=== PATIENT | male | born 1990 | race Caucasian/White ===

== ENCOUNTER 2017-01-22 02:35 | Emergency (ER) | payer OTHER ==
[~2017-01-22] VITALS: Ht 180.3 cm; Wt 65.8 kg
[2017-01-22 02:49] VITALS: BP 138/90
[2017-01-22] MEDS ORDERED: ONDANSETRON ODT 4 MG TAB.RAPDIS. PO ONE (04:00)
[2017-01-22] MEDS ORDERED: MORPHINE SULFATE 10 MG/ML VIAL. IM ONE (04:00)
[2017-01-22] MEDS ORDERED: NEOMY/BACITR/POLYMYXIN OINT PACKET. TP ONE (04:00)
[2017-01-22] MEDS ORDERED: HYDR-971 PO (04:10)
--- NOTE | 2017-01-22 04:11 | PHYS DOC ---
Past Medical History Past Medical History: Anxiety Additional Past Medical Histor: ADHD Past Surgical History: No Surgical History Alcohol Use: None Drug Use: None Adult General Chief Complaint Chief Complaint: UPPER EXTREMITY PAIN HPI HPI Patient is a 26 year old male who presents with complaint of left elbow injury. The patient states that he was skateboarding and lost his balance, falling approximately 5 feet onto a hard surface. Patient states that he hit his chin and his left elbow on the ground. Patient suffered a deep abrasion to the chin and states that he chipped his front teeth as a result of the fall. Patient states however his primary complaint is his left elbow which she has been unable to straighten out since the injury. Patient states that he is having significant pain to the elbow and rates it currently as 7 out of 10. Patient states that the pain worsens when he tries to extend his elbow and when he tries to supinate and pronate his forearm. Patient notes that he has abrasions over his left elbow from the fall. Patient denied any loss of consciousness. Patient has been ambulatory since the accident without difficulty. Patient's tetanus is up-to-date. Patient has not taken any medications to help with symptoms at this time. Review of Systems Review of Systems Constitutional: Denies fever or chills [] Eyes: Denies change in visual acuity, redness, or eye pain [] HENT: Dental injury, Denies nasal congestion or sore throat [] Respiratory: Denies cough or shortness of breath [] Cardiovascular: Denies chest pain or edema [] GI: Denies abdominal pain, nausea, vomiting, bloody stools or diarrhea [] : Denies dysuria or hematuria [] Musculoskeletal: Left elbow injury [] Integument: Abrasions to chin, left elbow, and wrist [] Neurologic: Denies headache, focal weakness or sensory changes [] Current Medications Current Medications Current Medications Medications (Trade) Dose Ordered Sig/Rodolfo Start Time Stop Time Status Last Admin Dose Admin Morphine Sulfate 5 mg 1X ONCE 01/22/17 04:00 01/22/17 04:01 DC 01/22/17 03:49 5 MG Neomycin/ Polymyxin/ Bacitracin (Triple Antibiotic Ointment) 1 pkt 1X ONCE 01/22/17 04:00 01/22/17 04:01 DC 01/22/17 03:47 1 PKT Ondansetron HCl (Zofran Odt) 4 mg 1X ONCE 01/22/17 04:00 01/22/17 04:01 DC 01/22/17 03:48 4 MG Allergies Allergies Allergies Coded Allergies Type Severity Reaction Last Updated Verified No Known Drug Allergies 01/22/17 No Physical Exam Physical Exam Constitutional: Alert, afebrile, appears in mild to moderate discomfort. [] HENT: Normocephalic, atraumatic, bilateral external ears normal, 1 cm deep abrasion to left side of chin, oropharynx moist, teeth #8 and #9 with distal chipping, no exposed dentin, no oral exudates, nose normal. [] Eyes: PERRLA, EOMI, conjunctiva normal, no discharge. [] Neck: Normal range of motion, no tenderness, supple, no stridor. [] Cardiovascular:Heart rate regular rhythm, no murmur [] Lungs & Thorax: Bilateral breath sounds clear to auscultation [] Abdomen: Bowel sounds normal, soft, no tenderness, no masses, no pulsatile masses. [] Skin: Warm, dry, no erythema, no rash. [] Back: No tenderness, no CVA tenderness. [] Extremities: Left elbow held in flexed position with overlying abrasions, lateral and volar tenderness to palpation, decreased range of motion including extension and pronation secondary to pain, neurovascularly intact distal to injury. [] Neurologic: Alert and oriented X 3, normal motor function, normal sensory function, no focal deficits noted. [] Current Patient Data Vital Signs Vital Signs Date Time Temp Pulse Resp B/P Pulse Ox O2 Delivery O2 Flow Rate FiO2 01/22/17 03:49 16 Room Air 01/22/17 02:49 98.5 104 98 98.5 01/22/17 02:48 138/90 EKG EKG Not performed [] Radiology/Procedures Radiology/Procedures 3 view left elbow x-ray interpreted by me: Nondisplaced radial head fracture, posterior fat pad and anterior sail sign present, normal alignment [] Course & Med Decision Making Course & Med Decision Making Pertinent Labs and Imaging studies reviewed. (See chart for details) The patient has radiographic evidence of a radial head fracture. The patient's left upper extremity was placed in a posterior splint by the emergency department operations technician. My evaluation post splint application showed normal capillary refill and normal sensation in all 5 digits of the left hand. Patient was prescribed Vicoprofen for outpatient treatment of pain and recommended outpatient follow-up with Dr. Betancourt of orthopedic surgery in one week. Recommended follow-up with the dentist in the next 2-3 days for evaluation of his dental injury. Patient's abrasions were dressed with and about ointment and nonadherent dressings. Advised return emergency department for any worsening symptoms. Patient voiced understanding and in agreement with treatment plan. Dragon Disclaimer Dragon Disclaimer This electronic medical record was generated, in whole or in part, using a voice recognition dictation system. Departure Departure Impression: Primary Impression: Left radial head fracture Additional Impressions: Chin abrasion, non-infected Abrasion of left elbow Dental injury Disposition: HOME, SELF-CARE Condition: IMPROVED Referrals: UNKNOWN PCP NAME (PCP) CHARLOTTE BETANCOURT MD Patient Instructions: Abrasions, Dental Injury, Radial Head Fracture Additional Instructions: Follow-up with Dr. Betancourt of orthopedic surgery in one week for reevaluation of your elbow. You will need follow-up with the dentist in the next 2 days for evaluation of your dental injury. Return to the emergency department for any worsening symptoms. Scripts Hydrocodone/Ibuprofen (Hydrocodone-Ibuprofen 7.5-200 )1 Each Tablet1 Tab PO Q6HRS PRN PAIN #20 TAB Ref 0 Prov:RUSS VARGHESE MD 01/22/17 Problem Qualifiers Primary Impression: Left radial head fracture Encounter type: initial encounter Fracture type: closed Fracture alignment : nondisplaced Qualified Code: S52.125A - Nondisplaced fracture of head of left radius, initial encounter for closed fracture Additional Impressions: Abrasion of left elbow Encounter type: initial encounter Qualified Code: S50.312A - Abrasion of left elbow, initial encounter Dental injury Encounter type: initial encounter Qualified Code: S09.93XA - Unspecified injury of face, initial encounter RUSS VARGHESE MD Jan 22, 2017 04:10
[2017-01-22] MEDS ORDERED: HYDR-79 PO (04:18)
--- NOTE | 2017-01-22 09:03 | RAD ---
ELBOW LEFT 3V Clinical Indication: left elbow injury Comparison: None. Technique: Frontal, oblique and lateral views of the left elbow are obtained. Findings: There is an acute, traumatic fracture involving the radial head with linear opacities seen along the articular surface. Minimal cortical offset is seen on the lateral view. Radiocapitellar alignment is maintained. A posterior fat pad is present, consistent with joint effusion secondary to fracture. Surrounding soft tissues demonstrate no acute finding. IMPRESSION: Acute radial head fracture with joint effusion.
== END 2017-01-22 04:23 | disposition home or self-care (01) ==
LOC: ER 02:35
DX: S52.122A Displaced fracture of head of left radius, initial encounter for closed fracture (principal); S00.81XA Abrasion of other part of head, initial encounter; S50.312A Abrasion of left elbow, initial encounter; S09.93XA Unspecified injury of face, initial encounter; F41.9 Anxiety disorder, unspecified; F90.9 Attention-deficit hyperactivity disorder, unspecified type; W17.89XA Other fall from one level to another, initial encounter; Y93.51 Activity, roller skating (inline) and skateboarding; Y92.89 Other specified places as the place of occurrence of the external cause; Y99.8 Other external cause status
CPT/HCPCS: 73080; 96372; 99284; J2270; Q0162

== ENCOUNTER → 2017-06-14 | Outpatient (CLI) | payer OTHER ==
[~2017-06-14] MED LIST: HYDR-79 PO; HYDR-971 PO; IOHEXOL 240 MG/ML 50ML VIAL. ONE; IOHEXOL 240 MG/ML 50ML VIAL. PO ONE; IOHEXOL 300 MG/ML 75 ML VIAL IV ONE; IOHEXOL 300 MG/ML 75 ML VIAL ONE
--- NOTE | 2017-06-14 15:15 | RAD ---
CT of the abdomen and pelvis with IV and oral contrast 06/14/2017 Indication: Abdominal pain. Weight loss. Rectal bleeding. Comparison study: None Discussion: Multidetector CT imaging of the abdomen and pelvis was obtained both before and after the administration of IV and oral contrast. Visualized lung bases are unremarkable. The liver, gallbladder, adrenal glands, spleen, pancreas are unremarkable. There is a 1.4 cm hypodensity in the inferior pole the left kidney most likely a small cyst. The attenuation characteristics however slightly greater than expected for a simple cyst. This may represent a small component of hemorrhage or proteinaceous material. Ultrasound recommended amended for further characterization. Right kidney is unremarkable. No evidence of bowel obstruction is identified. Small bowel is partially opacified with oral contrast. Lack of oral contrast within the distal small bowel and large bowel limits evaluation of these structures. No gross abnormalities are detected. No pneumoperitoneum or free peritoneal fluid is identified. Bladder is grossly unremarkable in appearance, but is predominantly decompressed. No acute osseous abnormalities are identified. Impression: 1.No evidence of acute intra-abdominal abnormality is identified. 2. 1.4 cm hypodense lesion, inferior pole left kidney. This is most likely a cyst with a small component of hemorrhage or proteinaceous material. Recommend ultrasound for confirmation/further characterization. PQRS Compliance Statement: One or more of the following individualized dose reduction techniques were utilized for this examination: 1. Automated exposure control 2. Adjustment of the mA and/or kV according to patient size 3. Use of iterative reconstruction technique
== END | disposition home or self-care (01) ==
LOC: CT 08:15
PROVIDERS: ATTEND Internal Medicine Gastroenterology
DX: K62.5 Hemorrhage of anus and rectum (principal); R63.4 Abnormal weight loss
CPT/HCPCS: 74177; Q9966; Q9967

== ENCOUNTER → 2018-03-29 | Day surgery (SDC) | payer OTHER ==
[~2018-03-29] MED LIST changes: +DEXAMETHASONE SOD PHOS 20 MG/5 ML VIAL.; +FAMOTIDINE 20 MG/2 ML VIAL; +GLUCAGON,HUMAN RECOMBINANT 1 MG/ML VIAL.; +GLYCOPYRROLATE 1 MG/5 ML VIAL.; -HYDR-79 PO; -HYDR-971 PO; -IOHEXOL 240 MG/ML 50ML VIAL. ONE; -IOHEXOL 240 MG/ML 50ML VIAL. PO ONE; -IOHEXOL 300 MG/ML 75 ML VIAL IV ONE; -IOHEXOL 300 MG/ML 75 ML VIAL ONE; +LIDOCAINE 1% PF 2 ML VIAL. ID; +LIDOCAINE 2% PF Vial for OR 5 ML VIAL.; +METOCLOPRAMIDE HCL 10 MG/2 ML VIAL.; +MIDAZOLAM HCL/PF 2 MG/2 ML VIAL.; +MORPHINE SULFATE 2 MG/ML DISP.SYRIN. IV; +NEOSTIGMINE METHYLSULFATE 5 MG/5 ML SYRINGE.; +ONDANSETRON PF 4 MG/2 ML VIAL.; +ONDANSETRON PF 4 MG/2 ML VIAL. IV; +PROPOFOL 20 ML IV; +ROCURONIUM 50 MG/5 ML VIAL.; +SEVOFLURANE 31 TO 60 MINUTES. IH; +SUCCINYLCHOLINE 200 MG/10 ML VIAL.; +SURGICEL HEMOSTAT 4X8 EACH.; +THROMBIN TOPICAL 5,000 UNIT VIAL.; +ceFAZolin 2GM PREMIX 2 GM/50 ML BAG IV; +fentaNYL PF VIAL 100 MCG/2 ML VIAL; +fentaNYL PF VIAL 100 MCG/2 ML VIAL IV; +oxyCODONE IR 5 MG TABLET
[2018-03-29 07:18] LABS: ADD MAN DIFF? NO
[2018-03-29] MEDS: IV RINGERS,LACTATED 1000ML 1,000 ML IV (07:25)
[2018-03-29 07:40] LABS: ANION GAP 4 (6-14); BLOOD UREA NITROGEN 14 mg/dL (8-26); CALCIUM 9.3 mg/dL (8.5-10.1); CARBON DIOXIDE 29 mmol/L (21-32); CHLORIDE 104 mmol/L (98-107); CREATININE 0.9 mg/dL (0.7-1.3); GFR 102.8; GLUCOSE 98 mg/dL (70-99); POTASSIUM 3.8 mmol/L (3.5-5.1); SODIUM 137 mmol/L (136-145)
[2018-03-29 07:46] LABS: ALBUMIN 4.5 g/dL (3.4-5.0)
[2018-03-29 07:55] LABS: BASO # 0.1 x10^3/uL (0.0-0.2); BASO % 1 % (0-3); EOS # 0.2 x10^3/uL (0.0-0.7); EOS % 2 % (0-3); HEMATOCRIT 42.1 % (39.0-53.0); HEMOGLOBIN 14.5 g/dL (13.0-17.5); LYMPH # 1.6 x10^3/uL (1.0-4.8); LYMPH % 20 % (24-48); MEAN CORPUSCULAR HEMOGLOBIN 31 pg (25-35); MEAN CORPUSCULAR HGB CONC 35 g/dL (31-37); MEAN CORPUSCULAR VOLUME 90 fL (79-100); MONO # 0.6 x10^3/uL (0.0-1.1); MONO % 7 % (0-9); NEUT # 5.6 x10^3uL (1.8-7.7); NEUT % 69 % (31-73); PLATELET COUNT 256 x10^3/uL (140-400); RED BLOOD COUNT 4.68 x10^6/uL (4.30-5.70); RED CELL DISTRIBUTION WIDTH 13.6 % (11.5-14.5); WHITE BLOOD COUNT 8.1 x10^3/uL (4.0-11.0)
[2018-03-29] MEDS: BUPIVACAINE-EPI 0.25%-1:200000 50 ML VIAL. (08:21)
[2018-03-29] MEDS: IOHEXOL 300 MG/ML 100ML VIAL. (08:22)
[2018-03-29] MEDS: fentaNYL PF VIAL 100 MCG/2 ML VIAL IV ×4 (09:01→09:33)
[2018-03-29] MEDS: PROCHLORPERAZINE 10 MG/2 ML VIAL. IV (09:52)
[2018-03-29] MEDS: oxyCODONE IR 5 MG TABLET PO (10:12)
== END | disposition home or self-care (01) ==
LOC: SURG 06:33
DX: K81.1 Chronic cholecystitis (principal); Z79.899 Other long term (current) drug therapy; F90.2 Attention-deficit hyperactivity disorder, combined type; F17.210 Nicotine dependence, cigarettes, uncomplicated; Z88.6 Allergy status to analgesic agent; Z86.010 Personal history of colon polyps; F41.9 Anxiety disorder, unspecified; Z72.89 Other problems related to lifestyle
CPT/HCPCS: 36415; 74300; 80048; 82040; 82247; 85025; 88304; A7015; J0330; J0690; J0780; J1100; J1610; J2001; J2250; J2270; J2405; J2704; J2710; J2765; J3010; J3490; J7030; Q9967; S0028

== ENCOUNTER 2019-05-06 22:04 | Emergency (ER) | payer BC, OTHER ==
[~2019-05-06] VITALS: Ht 177.8 cm; Wt 63.5 kg
[~2019-05-06 22:04] MED LIST changes: +ALPR2TAB5 PO; -DEXAMETHASONE SOD PHOS 20 MG/5 ML VIAL.; +DEXT30TA2 PO; +DOCU50CA9 PO; -FAMOTIDINE 20 MG/2 ML VIAL; -GLUCAGON,HUMAN RECOMBINANT 1 MG/ML VIAL.; -GLYCOPYRROLATE 1 MG/5 ML VIAL.; +HYDR-3164 PO; +HYDROCODONE-IB1 EAC3 PO; -LIDOCAINE 1% PF 2 ML VIAL. ID; -LIDOCAINE 2% PF Vial for OR 5 ML VIAL.; -METOCLOPRAMIDE HCL 10 MG/2 ML VIAL.; -MIDAZOLAM HCL/PF 2 MG/2 ML VIAL.; -MORPHINE SULFATE 2 MG/ML DISP.SYRIN. IV; -NEOSTIGMINE METHYLSULFATE 5 MG/5 ML SYRINGE.; -ONDANSETRON PF 4 MG/2 ML VIAL.; -ONDANSETRON PF 4 MG/2 ML VIAL. IV; +OXYC5TAB4 PO; -PROPOFOL 20 ML IV; -ROCURONIUM 50 MG/5 ML VIAL.; -SEVOFLURANE 31 TO 60 MINUTES. IH; -SUCCINYLCHOLINE 200 MG/10 ML VIAL.; -SURGICEL HEMOSTAT 4X8 EACH.; -THROMBIN TOPICAL 5,000 UNIT VIAL.; -ceFAZolin 2GM PREMIX 2 GM/50 ML BAG IV; -fentaNYL PF VIAL 100 MCG/2 ML VIAL; -fentaNYL PF VIAL 100 MCG/2 ML VIAL IV; -oxyCODONE IR 5 MG TABLET
[2019-05-06] MEDS ORDERED: BUPIVACAINE MPF 0.5% 30 ML VIAL. INJ ONE (22:15)
[2019-05-06] MEDS ORDERED: DIPHTH,PERTUSS(ACELL),TET TOX 0.5 ML DISP.SYRIN. VAX IM ONE (22:45)
--- NOTE | 2019-05-06 23:15 | PHYS DOC ---
Past Medical History Past Medical History: Anxiety Additional Past Medical Histor: ADHD (ALICE SO APRN) Past Surgical History: No Surgical History (ALICE SO APRN) Alcohol Use: None Drug Use: None (ALICE SO APRN) Adult General Chief Complaint Chief Complaint: HAND PROBLEM HPI HPI Patient is a 28 year old male with history of anxiety who presents to the ED today complaining over contusion to the left index finger. Patient is right- handed, he states a conveyor weighing approximately 200-300 pounds fell on his left index finger. He states he was in his work shop when this happened. (ALICE SO APRN) Review of Systems Review of Systems Constitutional: Denies fever or chills [] Musculoskeletal: Reports left index finger pain Integument: Denies rash or skin lesions [] Neurologic: Denies headache, focal weakness or sensory changes [] All other systems were reviewed and found to be within normal limits, except as documented in this note. (ALICE SO APRN) Current Medications Current Medications Current Medications Medications (Trade) Dose Ordered Sig/Rodolfo Start Time Stop Time Status Last Admin Dose Admin Bupivacaine HCl (Sensorcaine Mpf 0.5%) 30 ml 1X ONCE 05/06/19 22:15 05/06/19 22:16 DC Diphtheria/ Tetanus/Acell Pertussis (Boostrix) 0.5 ml ONCE ONCE 05/06/19 22:45 05/06/19 22:46 DC (JAYA OMER DO) Allergies Allergies Allergies Coded Allergies Type Severity Reaction Last Updated Verified acetaminophen Allergy Unknown 03/29/18 Yes (JAYA OMER DO) Physical Exam Physical Exam Constitutional: Well developed, well nourished, no acute distress, non-toxic appearance. [] Skin: Warm, dry, no erythema, no rash. [] Back: No tenderness, no CVA tenderness. [] Extremities: Left index and no obvious deformity. There is a subungual hematoma noted on the left index finger approximately 10% of the nail. There is small amount of bleeding noted along the lateral as well as steeple of the nailbed. Full range of motion to the left index finger. Patient able to flex and extend the left index finger at the MIP, PIP and DIP joints. Tenderness on palpation of the left index fingertip. Adequate radial sensation to the left index finger, cap refill less than 2 seconds the left index finger. Neurologic: Alert and oriented X 3, normal motor function, normal sensory function, no focal deficits noted. [] Psychologic: Affect normal, judgement normal, mood normal. [] (ALICE SO APRN) Current Patient Data Vital Signs Vital Signs Date Time Temp Pulse Resp B/P (MAP) Pulse Ox O2 Delivery O2 Flow Rate FiO2 05/06/19 23:16 102 18 120/70 (87) 100 Room Air 05/06/19 22:12 97.6 97.6 (JAYA OMER DO) EKG EKG [] (ALICE SO APRN) Radiology/Procedures Radiology/Procedures [] (ALICE SO APRN) Radiology/Procedures PROCEDURE: FINGER(S) LEFT EXAM: PA view left hand, oblique and lateral views left index finger DATE: 05/06/2019 10:11 PM INDICATION: Crush injury second digit COMPARISON: No Prior FINDINGS/ IMPRESSION: Soft tissue swelling about the left index finger. No evidence of acute fracture or dislocation. Sclerotic focus distal phalanx left index finger likely bone island. Electronically signed by: Philipp Beard MD (05/06/2019 11:41 PM) [facility] (JAYA OMER DO) Course & Med Decision Making Course & Med Decision Making Pertinent Labs and Imaging studies reviewed. (See chart for details) This is a 28-year-old male patient who presents to the ED today complaining of left index finger contusion after a 200-300 pound conveyor fell on his left index finger. Left index finger x-rays interpreted by Dr. Omer were negative for any acute findings. He was asking for IV pain medicine, informed him there is no indication for IV pain medicine. Offered him of hydrocodone, he states he is allergic to Tylenol offered ibuprofen. At this point he stating he would like to be discharged considering nothing is broken and he needs to be at work in 30 minutes. He states he doesn't have time to wait for the finger to be cleaned either. I offered him a digital block to the left index finger. He states he cannot even wait for that because he needs to be at work in 30 minutes and he cannot afford to be late. He was given his discharge paperwork with wound care instructions as well as return precautions. (ALICE SO APRN) Dragon Disclaimer Dragon Disclaimer This electronic medical record was generated, in whole or in part, using a voice recognition dictation system. (ALICE SO APRN) Departure Departure Impression: Primary Impression: Fingertip contusion Additional Impressions: Finger laceration Subungual hematoma, fingernail Disposition: 01 HOME, SELF-CARE Condition: STABLE Referrals: SHIKHA FITZPATRICK (PCP) KOURTNEY ARELLANO MD followup in 1 week Patient Instructions: Contusion, [id number] Additional Instructions: You were evaluated in the emergency room for left index finger contusion. Try to ice and elevate the area. You can take [id number] pain relievers as needed for pain. Apply Neosporin around the nail bed. Monitor the area for any signs of infection including but not limited to increased redness, warmth, yellow/odor is drainage from the area and return to the ED if they occur or see your doctor Attending Signature Attending Signature I have reviewed the PA/CLINICAL SCIENCE CONSULTANT's note and plan of care. I was available for consultation as needed during the patient's visit in the emergency department. I agree with the clinical impression, plan, and disposition. (JAYA OMER DO) Problem Qualifiers Primary Impression: Fingertip contusion Encounter type: initial encounter Qualified Codes: S60.00XA - Contusion of unspecified finger without damage to nail, initial encounter Additional Impressions: Finger laceration Encounter type: initial encounter Finger: index finger Damage to nail status: without damage Foreign body presence: without foreign body Laterality: left Qualified Codes: S61.211A - Laceration without foreign body of left index finger without damage to nail, initial encounter Subungual hematoma, fingernail Encounter type: initial encounter Qualified Codes: S60.10XA - Contusion of unspecified finger with damage to nail, initial encounter ALICE SO APRN May 06, 2019 23:15 JAYA OMER DO May 07, 2019 02:43
[2019-05-06 23:16] VITALS: BP 120/70
--- NOTE | 2019-05-06 23:44 | RAD ---
EXAM: PA view left hand, oblique and lateral views left index finger DATE: 05/06/2019 10:11 PM INDICATION: Crush injury second digit COMPARISON: No Prior FINDINGS/ IMPRESSION: Soft tissue swelling about the left index finger. No evidence of acute fracture or dislocation. Sclerotic focus distal phalanx left index finger likely bone island. Electronically signed by: Philipp Beard MD (05/06/2019 11:41 PM) [facility]
== END 2019-05-06 23:18 | disposition home or self-care (01) ==
LOC: ER 22:04
DX: S61.211A Laceration without foreign body of left index finger without damage to nail, initial encounter (principal); Z88.6 Allergy status to analgesic agent; W20.8XXA Other cause of strike by thrown, projected or falling object, initial encounter; Y93.89 Activity, other specified; Y92.69 Other specified industrial and construction area as the place of occurrence of the external cause; Y99.0 Civilian activity done for income or pay
CPT/HCPCS: 73140; 99284

== ENCOUNTER 2019-11-03 17:25 | Emergency (ER) | payer BC ==
[~2019-11-03] VITALS: Ht 177.8 cm; Wt 86.3 kg
[2019-11-03 17:42] VITALS: BP 149/89
[2019-11-03] MEDS ORDERED: TETRACAINE 0.5% OPHTH SOLUTION 4ML BOTTLE. OU ONE (17:45)
[2019-11-03] MEDS ORDERED: traMADol 50 MG TABLET PO ONE (17:45)
[2019-11-03] MEDS ORDERED: FLUORESCEIN OPHTH TEST STRIP. OU ONE (17:45)
--- NOTE | 2019-11-03 17:46 | PHYS DOC ---
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 Patient states after Any and no pain and he can see perfectly fine. He states now it is a lot worse and his vision is very blurry and he is photophobic. Patient rates his pain a 10 out of 10. Review of Systems Review of Systems Eyes: change in visual acuity, redness, or eye pain [] All other systems were reviewed and found to be within normal limits, except as documented in this note. Current Medications Current Medications Current Medications Medications (Trade) Dose Ordered Sig/Rodolfo Start Time Stop Time Status Last Admin Dose Admin Erythromycin (Romycin) 0.25 inch 1X ONCE 11/03/19 18:30 11/03/19 18:31 UNV Fluorescein Sodium (Ful-Breanna) 2 strip 1X ONCE 11/03/19 17:45 11/03/19 17:46 DC 11/03/19 17:55 2 STRIP Tetracaine HCl (Tetracaine) 1 drop 1X ONCE 11/03/19 17:45 11/03/19 17:46 DC 11/03/19 17:55 1 DROP Tramadol HCl (Ultram) 50 mg 1X ONCE 11/03/19 17:45 11/03/19 17:46 DC 11/03/19 17:56 50 MG Allergies Allergies Allergies Coded Allergies Type Severity Reaction Last Updated Verified acetaminophen Allergy Unknown 03/29/18 Yes Physical Exam Physical Exam Constitutional: Well developed, well nourished, no acute distress, non-toxic appearance. [] HENT: Normocephalic, atraumatic, bilateral external ears normal, oropharynx moist, no oral exudates, nose normal. [] Eyes: PERRLA, EOMI, conjunctiva pink, no discharge, photophobia. [] Neck: Normal range of motion, no tenderness, supple, no stridor. [] Cardiovascular:Heart rate regular rhythm, no murmur [] Lungs & Thorax: Bilateral breath sounds clear to auscultation [] Abdomen: Bowel sounds normal, soft, no tenderness, no masses, no pulsatile masses. [] Skin: Warm, dry, no erythema, no rash. [] Back: No tenderness, no CVA tenderness. [] Extremities: No tenderness, no cyanosis, no clubbing, ROM intact, no edema. [] Neurologic: Alert and oriented X 3, normal motor function, normal sensory function, no focal deficits noted. [] Psychologic: Affect normal, judgement normal, mood normal. [] Current Patient Data Vital Signs Vital Signs Date Time Temp Pulse Resp B/P (MAP) Pulse Ox O2 Delivery O2 Flow Rate FiO2 11/03/19 17:56 16 99 Room Air 11/03/19 17:42 98.1 64 149/89 (109) 98.1 EKG EKG [] Radiology/Procedures Radiology/Procedures [] Course & Med Decision Making Course & Med Decision Making Alert and oriented. Skin pink warm and dry. Conjunctivae is pink. I have discussed this patient with Dr Casillas and the care plan. After eye exam the eye are flushed with saline. Patient is given tramadol in the emergency room. After the tetracaine was placed in the patient's eye he states that the pain continues to be in A Lot Of Pain. Patient Is Still Very Photophobic and Is Having a Hard Time Opening His Eyes. Patient states his vision is still very blurred. Patient sent home with pain medication and erythromcin ointment. Patient to follow up with rn procedures in the next couple of days. Eye Exam w/ slit lamp: Visual Acuity: Visual Zhao: Intact in all four quadrants bilaterally Lac ducts/glands: No swelling Lids w/ evertion: Normal, no foreign body Conj/[place]: Bilateral corneal abrasions. [place], negative Fluorescein/Hollis's Anterior Chamber: Clear Tonopen readings: Retina exam: No obvious abnormality Dragon Disclaimer Dragon Disclaimer This electronic medical record was generated, in whole or in part, using a voice recognition dictation system. Departure Departure Impression: Primary Impression: Corneal abrasion of both eyes Disposition: HOME, SELF-CARE Condition: STABLE Referrals: SHIKHA FITZPATRICK (PCP) FORTINO COOBMS MD Patient Instructions: Eye - Corneal Abrasion, [id number] Additional Instructions: Call tomorrow morning and get an appointment for follow-up for your corneal abrasions. Use ointment as prescribed. Scripts Erythromycin Base (Erythromycin) 1 Gm Oint...g. 1 GM OP QID for 10 Days, #1 MISC Prov: CAITLYN CRAFT APRN 11/03/19 Tramadol Hcl (TRAMADOL HCL) 50 Mg Tablet 50 MG PO Q6HRS PRN for PAIN, #12 TAB Prov: CAITLYN CRAFT APRN 11/03/19 Ketorolac Tromethamine (KETOROLAC TROMETHAMINE) 5 Ml Drops 1 DROP EACHEYE QID for pain, #5 ML 0 Refills Prov: CAITLYN CRAFT APRN 11/03/19 Problem Qualifiers Primary Impression: Corneal abrasion of both eyes Encounter type: initial encounter Qualified Codes: S05.01XA - Injury of conjunctiva and corneal abrasion without foreign body, right eye, initial encounter; S05.02XA - Injury of conjunctiva and corneal abrasion without foreign body, left eye, initial encounter CAITLYN CRAFT APRN Nov 03, 2019 17:46
[2019-11-03] MEDS ORDERED: KETO5DRO24 EACHEYE (18:26)
[2019-11-03] MEDS ORDERED: TRAM50TA PO (18:26)
[2019-11-03] MEDS ORDERED: ERYT1OIN6 OP (18:28)
[2019-11-03] MEDS ORDERED: KETOROLAC TROMETHAMINE 0.5% OPHTH SOLUTION 3ML BOTTLE. OU ONE (18:30)
[2019-11-03] MEDS ORDERED: ERYTHROMYCIN 0.5% OPHTH OINTMENT 1GM TUBE. OU ONE (18:30)
[2019-11-03] MEDS ORDERED: IBUPROFEN 200 MG TABLET. PO ONE (19:45)
== END 2019-11-03 20:14 | disposition home or self-care (01) ==
LOC: ER 17:25
DX: S05.01XA Injury of conjunctiva and corneal abrasion without foreign body, right eye, initial encounter (principal); S05.02XA Injury of conjunctiva and corneal abrasion without foreign body, left eye, initial encounter; H53.8 Other visual disturbances; L53.9 Erythematous condition, unspecified; F41.9 Anxiety disorder, unspecified; F90.9 Attention-deficit hyperactivity disorder, unspecified type; Z88.6 Allergy status to analgesic agent; W89.0XXA Exposure to welding light (arc), initial encounter; Y93.89 Activity, other specified; Y92.89 Other specified places as the place of occurrence of the external cause; Y99.8 Other external cause status
CPT/HCPCS: 99284